=== PATIENT | male | born 1995 | race Caucasian/White ===

== ENCOUNTER 2016-11-11 09:22 | Emergency (ER) | payer OTHER ==
[~2016-11-11] VITALS: Ht 172.7 cm; Wt 48.5 kg
[~2016-11-11 09:22] MED LIST: CLIN-73 PO; IBUP-1542 PO
[2016-11-11 09:23] VITALS: Ht 172.7 cm; Wt 48.5 kg
[2016-11-11] MEDS ORDERED: KETOROLAC 30 MG INJ IM STA (09:49)
[2016-11-11 10:18] LABS: BASOPHILS % 0.2 % (0.0-2.0); EOSINOPHILS % 0.2 % (0.0-7.0); HEMATOCRIT 43.3 % (42.0-52.0); HEMOGLOBIN 14.6 g/dl (14.0-18.0); LYMPHOCYTES # 1.5 10^3/ul (0.8-2.9); LYMPHOCYTES % 14.1 % (18.0-55.0); MEAN CORPUSCULAR HEMOGLOBIN 29.9 pg (29.0-33.0); MEAN CORPUSCULAR HGB CONC 33.8 g/dl (32.0-37.0); MEAN CORPUSCULAR VOLUME 88.6 fl (72.0-104.0); MEAN PLATELET VOLUME 8.9 fl (7.4-10.4); MONOCYTE # 0.8 10^3/ul (0.3-0.9); MONOCYTES % 7.9 % (0.0-13.0); NEUTROPHIL # 8.2 10^3/ul (1.6-7.5); NEUTROPHILS % 77.6 % (30.0-74.0); PLATELET COUNT 201 10^3/UL (140-440); RED BLOOD COUNT 4.88 10^6/ul (4.70-6.10); RED CELL DISTRIBUTION WIDTH 13.4 % (11.5-14.5); UNCORRECTED WBC 10.6 10^3/ul (4.8-10.8); WHITE BLOOD COUNT 10.6 10^3/ul (4.8-10.8)
[2016-11-11 10:19] LABS: CONDITION 1
[2016-11-11 10:28] LABS: CREATININE 0.67 mg/dl (0.61-1.24)
[2016-11-11 10:29] LABS: CALCIUM 9.2 mg/dl (8.4-10.2)
[2016-11-11] MEDS ORDERED: IBUP-1542 PO (11:11)
--- NOTE | 2016-11-11 11:11 | ERD ---
ER Documentation Chief Complaint Date/Time DATE: 11/11/16 TIME: 11:04 Chief Complaint FEVER,SORE THROAT,ABDOMINAL PAIN,POOR PO INTAKE HPI This is a 20-year-old male presenting to the emergency department for fever, sore throat, decreased appetite, generalized body aches 6 days. Patient states he has had tactile fevers with sore throat and generalized body pain. Had one episode of vomiting yesterday. No vomiting or diarrhea today. No rhinorrhea or rhinitis. No dysuria or hematuria. Has had decreased appetite however tolerating oral intake. No signs or symptoms of respiratory distress. Denies cough, difficulty breathing or shortness of breath. No wheezing. No difficulty swallowing or drooling. Has been taking DayQuil and NyQuil at home. Patient states his brother has same symptoms. ROS All systems reviewed and are negative except as per history of present illness. Medications Home Meds Active Scripts Ibuprofen* (Motrin*) 600 Mg Tab, 600 MG PO Q6, #10 TAB Prov:MAY MILTON NP 11/11/16 Ibuprofen* (Motrin*) 600 Mg Tab, 600 MG PO Q6H Y for PAIN AND OR ELEVATED TEMP, #30 TAB Prov:MUNIR YOO MD 12/26/15 Clindamycin Hcl* (Clindamycin Hcl*) 300 Mg Capsule, 300 MG PO TID for 10 Days, CAP Prov:MUNIR YOO MD 12/26/15 Allergies Allergies: Coded Allergies: No Known Allergy (Unverified , 11/11/16) PMhx/Soc Medical and Surgical Hx: pt denies Medical Hx, pt denies Surgical Hx History of Surgery: No Anesthesia Reaction: No Hx Neurological Disorder: No Hx Respiratory Disorders: No Hx Cardiac Disorders: No Hx Psychiatric Problems: No Hx Miscellaneous Medical Probl: No Hx Alcohol Use: No Hx Substance Use: No Hx Tobacco Use: No Smoking Status: Never smoker Physical Exam Vitals Vital Signs Date Time Temp Pulse Resp B/P Pulse Ox O2 Delivery O2 Flow Rate FiO2 11/11/16 11:20 99.0 78 18 115/75 98 Room Air 11/11/16 09:23 99.4 84 18 118/78 98 Physical Exam Const: No acute distress, alert Head: Atraumatic Eyes: Normal Conjunctiva ENT: Normal External Ears, Nose and Mouth. No erythema or exudate posterior pharynx. Neck: Full range of motion..~ No meningismus. Resp: Clear to auscultation bilaterally. No wheezing, rhonchi or crackles Cardio: Regular rate and rhythm, no murmurs Abd: Soft, non tender, non distended. Normal bowel sounds Skin: No petechiae or rashes Back: No midline or flank tenderness. No CVA tenderness Ext: No cyanosis, or edema Neur: Awake and alert Psych: Normal Mood and Affect Result Diagram: 11/11/16 1010 11/11/16 1010 Results 24 hrs Laboratory Tests Test 11/11/16 10:10 Anion Gap 16 Basophils # 0.010^3/ul Basophils % 0.2% Blood Urea Nitrogen 11mg/dl Calcium Level 9.2mg/dl Carbon Dioxide Level 30mmol/L Chloride Level 103mmol/L Creatinine 0.67mg/dl Eosinophils # 0.010^3/ul Eosinophils % 0.2% Glucose Level 92mg/dl Hematocrit 43.3% Hemoglobin 14.6g/dl Lymphocytes # 1.510^3/ul Lymphocytes % 14.1% Mean Corpuscular Hemoglobin 29.9pg Mean Corpuscular Hemoglobin Concent 33.8g/dl Mean Corpuscular Volume 88.6fl Mean Platelet Volume 8.9fl Monocytes # 0.810^3/ul Monocytes % 7.9% Neutrophils # 8.210^3/ul Neutrophils % 77.6% Nucleated Red Blood Cells # 0.010^3/ul Nucleated Red Blood Cells % 0.0/100WBC Platelet Count 93318^3/UL Potassium Level 4.0mmol/L Red Blood Count 4.8810^6/ul Red Cell Distribution Width 13.4% Sodium Level 145mmol/L White Blood Count 10.610^3/ul Current Medications Medications (Trade) Dose Ordered Sig/Rodo Route PRN Reason Start Time Stop Time Status Last Admin Dose Admin Ketorolac Tromethamine (Toradol) 30 mg ONCE STAT IM 11/11/16 09:49 11/11/16 09:51 DC 11/11/16 09:58 Procedures/MDM ED COURSE: The patient was stable throughout ED course. I kept the patient and/or family informed of laboratory and diagnostic imaging results throughout the ED course. Laboratory CBC no significant evidence for infection or anemia. CMP no significant findings MDM: 20-year-old male presents emergency department for fever, sore throat, generalized body aches and poor appetite 6 days. Temp of 99.4F upon arrival to ED otherwise hemodynamically stable. No signs or symptoms of respiratory distress. CBC and CMP are unremarkable. No active vomiting or diarrhea while in the ED. Patient given Toradol IM with good relief of pain. Remains stable. No fevers while in ED. Patient likely has viral URI. Low suspicion for acute epiglottitis, strep pharyngitis, pneumonia, pneumothorax, pulmonary embolism, otitis media, meningitis, appendicitis or bowel obstruction. Patient is appropriate for outpatient management and will be discharged with prescription for ibuprofen. Instructed patient to follow-up with primary care provider in the next 2-3 days for reassessment. Return to ED for any high fever , chest pain, difficulty breathing, shortness breath, wheezing, vomiting, diarrhea, abdominal pain or any new or worsening symptoms. Patient verbalizes understanding. All questions answered at discharge. Departure Diagnosis: Primary Impression: URI (upper respiratory infection) URI type: unspecified viral URI Qualified Code: J06.9 - Viral upper respiratory tract infection Condition: Stable MAY MILTON NP Nov 11, 2016 11:10
[2016-11-11 11:20] VITALS: BP 115/75
== END 2016-11-11 11:22 | disposition home or self-care (01) ==
LOC: FTE 09:22
DX: J06.9 Acute upper respiratory infection, unspecified (principal)
CPT/HCPCS: 80048; 85025; 96372; J1885; Z7502